=== PATIENT | male | born 1945 | race Two or more races ===

== ENCOUNTER 2021-05-04 16:50 | Emergency (ER) | payer MEDICAID, MEDICARE ==
[~2021-05-04] VITALS: Ht 160 cm; Wt 88.0 kg
[2021-05-04 19:04] LABS: COVID AG,FIA SOURCE NASOPHARYNGEAL
[2021-05-04 19:07] VITALS: BP 131/76
== END 2021-05-04 19:14 | disposition home or self-care (01) ==
LOC: EMS 16:50
DX: R50.9 Fever, unspecified (principal); Z20.822 Contact with and (suspected) exposure to COVID-19
CPT/HCPCS: 87426; 99283; U0003

== ENCOUNTER 2022-07-17 14:23 | Emergency (ER) | payer MEDICARE ==
[~2022-07-17] VITALS: Ht 160 cm; Wt 85.9 kg
[2022-07-17 14:37] LABS: COVID AG,FIA SOURCE NASOPHARYNGEAL
[2022-07-17] MEDS ORDERED: ASPI81TA87 PO (14:45)
[2022-07-17] MEDS ORDERED: ISOS30TA92 PO (14:45)
[2022-07-17] MEDS ORDERED: ICOS1CAP PO (14:45)
[2022-07-17] MEDS ORDERED: AMLO-258 PO (14:45)
[2022-07-17] MEDS ORDERED: NITR0.4T52 SL (14:45)
[2022-07-17] MEDS ORDERED: METF-1211 PO (14:45)
[2022-07-17] MEDS ORDERED: ATOR40TA28 PO (14:45)
[2022-07-17] MEDS ORDERED: LISI-894 PO (14:45)
[2022-07-17] MEDS ORDERED: CHL25 PO (14:45)
[2022-07-17 15:03] LABS: INFLUENZA TYPE A NEGATIVE FOR TYPE A (NEGATIVE); INFLUENZA TYPE B NEGATIVE FOR TYPE B (NEGATIVE)
[2022-07-17] MEDS ORDERED: LIDOCAINE 2% VISCOUS 15 ML SOLUTION UDCUP PO ONE (16:00)
[2022-07-17] MEDS ORDERED: MAG HYDROX/AL HYDROX/SIMETH ES 30 ML SUSPENSION UDCUP PO ONE (16:00)
[2022-07-17 16:06] LABS: BASOPHILS % (AUTO) 0.3 % (0.0-2.0); EOSINOPHILS % (AUTO) 0.8 % (1.0-6.0); HEMATOCRIT 39.4 % (41-53); HEMOGLOBIN 13.2 g/dL (13.5-17.5); LYMPHOCYTES # (AUTO) 1.8 K/uL (1.0-4.8); LYMPHOCYTES % (AUTO) 14.2 % (22.0-44.0); MEAN CORPUSCULAR HEMOGLOBIN 28.6 pg (26.0-34.0); MEAN CORPUSCULAR HGB CONC 33.5 G/dL (31.0-37.0); MEAN CORPUSCULAR VOLUME 85 fL (80-100); MONOCYTES # (AUTO) 0.8 K/uL (0.1-1.0); MONOCYTES % (AUTO) 6.1 % (2.0-9.0); NEUTROPHILS % (AUTO) 78.6 % (40.0-70.0); PLATELET COUNT (AUTO) 386 K/uL (150-450); RED BLOOD CELL COUNT(AUTO) 4.62 MIL/uL (4.50-5.90); RED CELL DISTRIBUTION WIDTH 16.1 % (11.5-14.5)
[2022-07-17 16:40] LABS: B-TYPE NATRIURETIC PEPTIDE 30 pg/mL (0-100)
[2022-07-17 16:54] LABS: ALANINE AMINOTRANSFERASE 48 U/L (12-78); ALBUMIN 3.2 g/dL (3.4-5.0); ALKALINE PHOSPHATASE 129 U/L (46-116); ANION GAP 9 mmol/L (8-16); ASPARTATE AMINOTRANSFERASE 25 U/L (15-37); BILIRUBIN,TOTAL 0.3 mg/dL (0.1-1.0); CALCIUM, TOTAL 9.5 mg/dL (8.8-10.5); CARBON DIOXIDE 29 mmol/L (22-29); CHLORIDE 93 mmol/L (98-107); CREATININE 0.88 mg/dL (0.60-1.30); GLUCOSE,RANDOM 163 mg/dL (70-110); SODIUM SERUM 131 mmol/L (136-145); TOTAL PROTEIN, SERUM 8.1 g/dL (6.4-8.2); UREA NITROGEN, BLOOD 15 mg/dL (7-18)
[2022-07-17 17:04] LABS: GLOMERULAR FILTR. RATE CALC > 60 mL/min (>60); POTASSIUM 2.8 mmol/L (3.5-5.1)
[2022-07-17] MEDS ORDERED: POTASSIUM CHLORIDE 20 MEQ ER TABLET PO ONE (17:15)
[2022-07-17] MEDS ORDERED: ALEN70TA80 PO (17:20)
[2022-07-17] MEDS ORDERED: TOLT4CAP27 PO (17:20)
[2022-07-17] MEDS ORDERED: FINA5TAB41 PO (17:20)
[2022-07-17] MEDS ORDERED: TAMS-13 PO (17:20)
[2022-07-17 17:31] VITALS: BP 137/77
== END 2022-07-17 18:08 | disposition home or self-care (01) ==
LOC: EMS 14:32
DX: J40 Bronchitis, not specified as acute or chronic (principal); E87.6 Hypokalemia; E11.9 Type 2 diabetes mellitus without complications; I10 Essential (primary) hypertension; Z96.651 Presence of right artificial knee joint; Z20.822 Contact with and (suspected) exposure to COVID-19
CPT/HCPCS: 71045; 80053; 83880; 84484; 85025; 87804; 93005; 99285; 36415-L1; 36415-TC